=== PATIENT | female | born 2000 | race Caucasian/White ===

== ENCOUNTER → 2022-11-04 12:23 | Outpatient (CLI) | payer OTHER, SELFPAY ==
[2022-11-04 14:32] LABS: Influenza A - CEPHEID Flu A NEGATIVE (NEGATIVE); Influenza B - CEPHEID Flu B NEGATIVE (NEGATIVE)
[2022-11-04 14:33] LABS: COVID-19 CEPHEID 4-PLEX PCR Negative (Negative)
== END ==
PROVIDERS: PCP Registered Nurse Diabetes Educator; Visit Provider Registered Nurse Diabetes Educator
DX: R05.9 Cough, unspecified (principal)
CPT/HCPCS: 0240U

== ENCOUNTER 2024-02-20 12:15 | Emergency (ER) | payer OTHER, SELFPAY ==
--- NOTE | 2024-02-20 13:15 | DI.US.S_ITS ---
PROCEDURE: US PELVIC COMPLETE INDICATIONS: Vaginal bleeding TECHNIQUE: Real-time scanning was performed of the pelvic organs, with image documentation. Additional endovaginal scanning was necessary due to incomplete visualization of the adnexal and endometrial structures by transabdominal scanning. COMPARISON: None. FINDINGS: Uterus: Uterus is anteverted and normal in size at 10.5 x 6.0 x 4.8 cm. The myometrium is homogeneous. The endometrium measures 18 mm combined thickness. Heterogeneous, thickened endometrium without abnormal vascularity. No intrauterine gestation visualized. Ovaries: The right ovary measures 3.5 x 2.6 x 1.9 cm, with a calculated ovarian volume of 9.0 cc. The left ovary measures 3.1 x 3.3 x 2.2 cm, with a calculated ovarian volume of 10.7 cc. The ovaries have a normal sonographic appearance. Less than 12 follicles can be seen in each ovary. No adnexal masses are seen. Other: No pathologic free abdominal or pelvic fluid. IMPRESSION: Heterogeneous, mildly thickened endometrium without visualized intrauterine gestation or abnormal vascularity. Recommend correlation with laboratory evaluation quantitative HCG measurements. A follow-up ultrasound in 6-12 weeks can be considered document resolution. We strive to produce accurate, complete, and clear reports of imaging services. To assist us in improving patient care, this report was composed using standard report templates and voice recognition software. Therefore, it may contain abnormal punctuation, insertions and/or omissions. Occasional wrong-word or sound-alike substitutions may occur. Though we review the report and make efforts to correct it, we do recommend that the report be read carefully in proper context to recognize any text inaccuracies. Dictated by: Anthony Solis M.D. on 02/20/2024 at 14:09 Approved by: Anthony Solis M.D. on 02/20/2024 at 14:12
[2024-02-20 20:06] LABS: Add Manual Diff / Slide Review NO; Basophils Absolute Auto 0 /uL (0-100); Basophils Percent Auto 0.3 % (0-2); Eosinophils Absolute Auto 0 /uL (0-450); Eosinophils Percent Auto 0.1 % (2-4); Hematocrit 31.7 % (36-46); Hemoglobin 10.7 g/dL (12.0-16.0); Lymphocytes Absolute Auto 800 /uL (1100-4500); Mean Corpuscular HGB Conc 33.7 % (30-36); Mean Corpuscular Hemoglobin 28.8 PG (26-34); Mean Corpuscular Volume 85.5 fL (80-100); Monocytes Absolute Auto 600 /uL (0-900); Monocytes Percent Auto 5.6 % (3-14); Neutrophils Absolute Auto 9900 /uL (1500-7000); Platelet Count 243 X10^3/uL (150-400); Red Blood Cell Count 3.71 X10^6/uL (4.0-5.2); Red Cell Distribution Width 14.4 % (11.6-14.8); White Blood Cell Count 11.4 X10^3/uL (4.5-11.0)
[2024-02-20 20:08] LABS: INR 1.1 (0.9-1.3); PTT Partial Thromboplastin Tim 25 SECONDS (25.1-36.5); Prothrombin Time 12.5 SECONDS (9.4-12.5)
[2024-02-20 20:09] LABS: Alanine Aminotransferase 12 IU/L (<35); Albumin Globulin Ratio 1.3 (1.0-2.8); Alkaline Phosphatase 44 U/L (38-126); Aspartate Aminotransferase 25 IU/L (14-36); BUN Creatinine Ratio 10.5 (6-22); Bilirubin Total 0.5 mg/dL (0.2-1.3); Blood Urea Nitrogen 6 mg/dL (7-17); Carbon Dioxide 24 mmol/L (22-32); Chloride 108 mmol/L (98-107); Estimated Glomerular Filt Rate > 60 mL/min (>60); Globulin 2.3 g/dL (1.7-4.1); Glucose 81 mg/dL (70-100); HCG Quantitative /Beta subunit 49834 mIU/mL; HEMOLYSIS 74 (0-50); Potassium 4.4 mmol/L (3.4-5.1); Sodium 134 mmol/L (137-145); Total Protein 5.3 g/dL (6.3-8.2)
== END 2024-02-20 16:28 | disposition home or self-care (01) ==
LOC: ED 15:39
PROVIDERS: Emergency Provider Emergency Medicine; PCP Registered Nurse Diabetes Educator
DX: N93.9 Abnormal uterine and vaginal bleeding, unspecified (principal); R42 Dizziness and giddiness; R51.9 Headache, unspecified
CPT/HCPCS: 76830; 76856; 80053; 84702; 85025; 85610; 85730; 86850; 86900; 86901; 99281; 99283

== ENCOUNTER 2025-03-14 16:25 | Inpatient (IN) | payer OTHER, SELFPAY ==
[2025-03-14 17:04] VITALS: BP 117/63
[2025-03-14 17:53] LABS: Add Manual Diff / Slide Review NO; Hematocrit 35.0 % (36-46); Hemoglobin 11.4 g/dL (12.0-16.0); Lymphocytes Absolute Auto 1600 /uL (1100-4500); Mean Corpuscular HGB Conc 32.6 % (30-36); Mean Corpuscular Hemoglobin 26.8 PG (26-34); Mean Corpuscular Volume 82.4 fL (80-100); Platelet Count 251 X10^3/uL (150-400)
--- NOTE | 2025-03-14 18:09 | P.HPOB_ITS ---
OB HPI Date/Time Date of admission: 03/14/25 Date Patient Seen: 03/14/25 Time Patient Seen: 17:40 History of Present Condition Chief complaint: IUP, 40+0 wks, SROM 72 hrs, CNM transfer in labor Date of Last Menstrual Period: 06/07/24 Estimated Gestational Age (weeks): 40+0 : 1 Para: 0 Narrative: Jaye is a 24-year-old primigravida admitted in transfer from her [facility], [place], in labor. The patient had a high leak which started at 1810 on 03/11/2025 with subsequent gross rupture membranes the following morning on 03/12/2025. Patient did not begin actively rafael and was therefore given a dose of castor oil on 03/13/2025. The cholesterol stimulating contractions which eventually fizzled out late on the morning of 03/14/2025 and with lack of active contractions, now almost 72 hours out from spontaneous rupture of membranes, the patient is transferred to [facility] for Pitocin augmentation and delivery. Patient's course has been unremarkable with solid dating by LMP, and first-trimester ultrasound. GBS is negative. Patient has been afebrile since SROM. care: good care Dating criteria OB: LMP confirmed by 1st trimester US Ultrasounds: normal 1st trimester US and other (NL US 3rd trimester, 67th %'tile EFW) Obstetrical complications: none Medical complications OB: none Preadmission Labs Last OB Lab Results: 2 Blood Type O Positive 02/20/24, 12:56 Antibody Screen Negative 02/20/24, 12:56 Hct, (36-46) 35.0 % L Today, 17:45 Hgb, (12.0-16.0) 11.4 g/dL L Today, 17:45 -: Chlamydia screen: negative, Gonorrhea screen: negative and Urine: negative -: PAP smear: Normal External Labs -: Urine: negative Prior (ies) Hx # Term Pregnancies: 0 Evaluation Evaluation Baseline heart rate: 130 Variability: Moderate (6-25) monitor accelerations: Present Monitor Decelerations: Absent Contraction Frequency (minutes): 6 Uterine Contraction Intensity: Mild Category of Tracing: Reactive Status: Category l Dilation (cm): 5 (According to CNM) Effacement (%): 100 (According to CNM) Dilation: >/=5 cm Effacement: >/=80% station: -2 Position of cervix: anterior Consistency: soft Lynch score: 11 [facility] Surgical History Anesthesia History of appendectomy (~2015) History of elbow surgery (~2004) History of knee surgery Meds Home Medications and Allergies Home Medications ?Medication ?Instructions ?Recorded ?Confirmed ?Type No Known Home Medications 11/04/22 07/10/08 History Allergies Allergy/AdvReac Type Severity Reaction Status Date / Time mold Allergy Mild Rash Verified 03/14/25 17:07 pollen extracts Allergy Mild Rash Verified 03/14/25 17:07 ciprofloxacin AdvReac Intermediate Kidney Verified 03/14/25 17:07 damage Review of Systems Review of Systems Narrative: Problem-specific ROS positives included in HPI OB Exam Vital signs Blood Pressure: 117/63 Pulse Rate: 77 Respiratory Rate: 15 Temperature: 97.0 F HENMT Head: normal to inspection, normocephalic and atraumatic Eyes General: appearance normal, both eyes and all related structures Resp Effort & Inspection: normal respiratory effort and able to speak in complete sentences Auscultation: clear to auscultation bilaterally Cardio Rate: regular rate Rhythm: regular rhythm Heart Sounds: S1 normal, S2 normal and no murmurs Extremities Lower extremity: Yes normal to inspection GI Inspection: normal to inspection Palpation: Yes soft and Yes no hepatosplenomegaly Uterus Location (Fundal Height): 37 Estimated Weight (lbs): 8 Amniotic Fluid: clear Objective Labs 03/14/25 17:45 Labs: Laboratory Results - last 24 hr 03/14/25 17:45 WBC 12.5 H RBC 4.24 Hgb 11.4 L Hct 35.0 L MCV 82.4 MCH 26.8 MCHC 32.6 RDW 14.1 Plt Count 251 Neut % (Auto) 78.2 H Lymph % (Auto) 13.[address] [place] % (Auto) 8.1 Eos % (Auto) 0.2 L Baso % (Auto) 0.4 Neut # (Auto) 9800 H Lymph # (Auto) 1600 [place] # (Auto) 1000 H Eos # (Auto) 0 Baso # (Auto) 0 Assessment and Plan Assessment and Plan Assessment and Plan narrative: ASSESSMENT 1. Intrauterine , 40+ 0 weeks gestational age 2. Prolonged rupture membranes 3. GBS negative status PLAN 1. Admit for Pitocin augmentation and delivery as indicated 2. See admission orders Time-Based Coding :: [TOTAL MINUTES] spent with patient and on the chart (including review of chart, obtaining history, exam, reviewing outside data, placing orders, documenting exam and treatment plan, and counseling patient) on [DATE].
[2025-03-14 20:05] VITALS: BP 117/63; PULSE 77; RESP 15; TEMP 36.1
[2025-03-14] MEDS: OXYTOCIN PREMIX 30 UNIT/500 ML PLAST..BAG IV (20:50)
--- NOTE | 2025-03-15 03:20 | PM.OBPNLAB ---
Date/Time Date Patient Seen: 03/15/25 Time Patient Seen: 03:20 Pain Control Pain control: tolerating well Pelvic Exam Dilation (cm): 10 Effacement (%): 100 (According to CNM) station: +1 Amniotic membrane status: Ruptured (Forebag AROM 0305) Contractions Contractions on admission: irregular Monitor mode: External Pitocin rate (mU/min): 1 Contraction duration (min): 1 Contraction pattern: Regular Contraction phase: Resting Contraction intensity: Strong/Firm Status status: Category l Heart Rate Baseline: 140 Monitor Accelerations: Present Monitor Decelerations: Early Monitor Variability: Moderate Assessment and Plan Assessment: active labor Plan: continuous present management Comments: Patient will rest for a bit and start pushing or permit laboring down as desired. Mother understandably nearing exhaustion but strong and committed to the active birthing process..
[2025-03-15] MEDS: OXYTOCIN PREMIX 30 UNIT/500 ML PLAST..BAG 999 UNIT IV (03:55)
[2025-03-15] MEDS: LIDOCAINE 1% 20 ML INJ (04:00)
--- NOTE | 2025-03-15 04:36 | PM.OBPRVD ---
Events: Prolonged Rupture Membrane Labor & Delivery Delivery date: 03/15/25 Delivery Time: 03:44 Intrapartal Events: None and Hypotonic Dysfunction Cervical ripening method: none Induction method: none Delivery augmentation: pitocin Delivery monitor: external FHT and external uterine Route of delivery: Episiotomy description: None L&D Laceration Description: Perineal - 2nd Degree Delivery repair: chromic Estimated blood loss (mL): 500 Quantitative Blood Loss: 849 Anesthesia Type: Local Complications: None Narrative: Following an 8 minute 2nd stage, the patient delivered spontaneously over an intact perineum a vigorous female infant with Apgars 9/9, and a weight 4001g (8lbs. 13.1oz.). No cord entanglement or shoulder dystocia was encountered. Skin to skin contact immediately initiated following delivery and delayed cord clamping performed. Once pulsations of the cord had ceased, the cord itself was doubly clamped and cut with a sample of cord blood obtained for routine studies. The placenta was delivered easily with gentle cord traction and suprapubic countertraction inspection of the placenta revealed an intact placenta with a centrally inserting three-vessel cord. Intravenous Pitocin initiated immediately following delivery of the placenta with a large amount of clot delivering with the placenta itself. bleeding was brought quickly under control with the IV Pitocin. Inspection of the perineum showed a somewhat irregular second-degree perineal laceration which was repaired with 2-0 chromic in the usual manner. Sponge, instrument, and needle counts were correct at the end of the delivery process which was well tolerated by both mother and baby. [place] Baby 1: gender: Female Presentation: vertex Position: Left Occiput Anterior Placenta delivery description: Spontaneous Cord Vessel Description: 3 Vessels score (1 min): 9 score (5 min): 9 weight: 8 lb 13.131 oz Plan for aftercare: Routine care
[2025-03-15 06:36] LABS: Add Manual Diff / Slide Review NO; Hematocrit 32.7 % (36-46); Hemoglobin 10.6 g/dL (12.0-16.0); Lymphocytes Absolute Auto 1300 /uL (1100-4500); Mean Corpuscular HGB Conc 32.4 % (30-36); Mean Corpuscular Hemoglobin 26.7 PG (26-34); Mean Corpuscular Volume 82.5 fL (80-100); Platelet Count 336 X10^3/uL (150-400)
[2025-03-15] MEDS: IBUPROFEN 600 MG TABLET PO (06:43)
[2025-03-15] MEDS: DERMOPLAST SPRAY 20% 60 ML 1 SPRAY TOP (06:43)
--- NOTE | 2025-03-15 13:08 | P.DS_ITS ---
Discharge Providers Provider Date of admission: 03/14/25 16:25 Discharge Date: 03/15/25 Primary care physician: TOMASZ Bo Consults: 03/14/25 16:55 Consult to Anesthesiology Urgent Comment: Consulting Provider: Yuli Porter Reason for consultation: Epidural Has provider been notified: Yes 03/15/25 05:17 Consult to Qualitative Field Coordinator Routine Comment: Discharge provider: Rudy Castillo MD Summary Hospital Course Date Patient Seen: 03/15/25 Time Patient Seen: 13:09 Diagnoses: Intrauterine gestation, 40+ 1 weeks, delivered by spontaneous vaginal Prolonged rupture of membranes Hospital Course: Jaye is a 24-year-old primigravida admitted in transfer on the evening of 03/14/2025 from her program management professional, Courtney Jones, due to prolonged rupture of membranes and secondary arrest of labor. Patient experienced spontaneous rupture membranes late on the evening of 03/11/2025 and after failing to spontaneously labor after SROM, nipple stimulation was employed followed by use of castor oil to facilitate labor. Unfortunately her labor stalled on the afternoon of 03/14/2025 and the decision was made to transfer the [facility] for augmentation and delivery. Following her arrival on the evening of 03/14/2025, gentle Pitocin augmentation was initiated with pain relief provided by natural methods and as needed use of nitrous oxide. She progressed spontaneously with augmentation of 1 milliunit Pitocin/min and at 3:45 a.m. on the morning of 03/15/2025 delivered spontaneously a viable female infant with Apgars of 9/9, and a weight of 4001 g (8 lb 13.1 oz). She sustained a second-degree perineal laceration which was easily repaired with chromic catgut suture. Following delivery both mother and baby have done exceptionally well with the mother experiencing prompt return of bowel and bladder function, she is ambulating independently, tolerating a regular diet, and her pain is well relieved with oral pain medications. She will be discharged at this time to home after counseling regarding precautionary symptoms, limitations activity, medications, and plans for follow-up with her program management professional. The infant will undergo CCHD, PKU, and bilirubin testing on the 2nd day of life. Medications at discharge will include resumption of vitamins and she will use [id number] Tylenol/ibuprofen as needed for her pain relief. Follow-up will be via her program management professional who has provided excellent care of during her and planned home labor. Peripartum Data Infant Delivery Method: Natural Vaginal Laceration Description: Perineal - 2nd Degree Episiotomy description: None Procedures: Spontaneous vaginal delivery with repair of second-degree perineal laceration complications: none 1: Gender: Female Disposition of : home Status at Discharge Cognitive/behavioral status at discharge: oriented Functional status at discharge: independent ambulation Overall status at discharge: patient is progressing back to baseline Time Spent with Patient Time attestation: Total time spent providing and/or coordinating discharge services: 20 minutes Time spent: Less than 30 minutes Objective Labs 03/15/25 06:28 Labs: Laboratory Results - last 24 hr 03/14/25 03/15/25 17:45 06:28 WBC 12.5 H 20.5 H D RBC 4.24 3.97 L Hgb 11.4 L 10.6 L Hct 35.0 L 32.7 L MCV 82.4 82.5 MCH 26.8 26.7 MCHC 32.6 32.4 RDW 14.1 13.8 Plt Count 251 336 Neut % (Auto) 78.2 H 87.4 H Lymph % (Auto) 13.1 L 6.4 L [place] % (Auto) 8.1 5.9 Eos % (Auto) 0.2 L 0.0 L Baso % (Auto) 0.4 0.3 Neut # (Auto) 9800 H 83222 H Lymph # (Auto) 1600 1300 [place] # (Auto) 1000 H 1200 H Eos # (Auto) 0 0 Baso # (Auto) 0 100 Blood Type O Positive Antibody Screen Negative Exam Const General: cooperative and comfortable Nutritional Appearance: average body habitus Orientation: alert and oriented x3 HENMT Head: normal to inspection, atraumatic and abrasion Ears: hearing grossly normal bilaterally Face and sinus: face symmetric Eyes General: appearance normal, both eyes and all related structures Conjunctivae: conjunctivae normal Sclera: sclerae normal EOM: EOM intact bilaterally Neck Neck: normal visual inspection Resp Effort & Inspection: normal respiratory effort and able to speak in complete sentences GI Inspection: normal to inspection Palpation: soft and no hepatosplenomegaly External Female Exam: other (No significant bleeding noted) Extrem General: no calf tenderness Psych Appearance: grossly normal Mental Status: mental status grossly normal Speech and Movement: speech and movement normal Mood: congruent mood Affect: normal affect Attitude: cooperative Thought Process: normal Thought Content: normal Judgment: judgment good Discharge Plan Discharge Plan Patient Disposition: Home Provider Discharge Comment: Please review the written instructions you received when you were discharged from hospital. Records from your hospitalization and delivery have been faxed to your program management professional. Your follow-up will be arranged with your nurse program management professional but we are always available for any questions or concerns either by phone at [phone] or by the [facility] patient portal. Discharge orders & Medications Prescriptions: No Action No Known Home Medications Follow up/Referrals: Bean Butts ARNP [Primary Care Provider, Medical] Rudy Castillo MD [Physician, WAITER] Discharge Health Status Multidrug resistant organism: No MDRO Diet/Activity/Treatments Diet: Diet as Tolerated Activity: As tolerated Other treatments: [id number] Tylenol and/or ibuprofen may be used for pain relief. Gnij-lgi-bmwxrrr stool softeners and/or MiraLax may be used as needed for constipation. Skin/Wound/Dressing Care Report to your healthcare provider any signs of infection, such as:: chills, fever, increased pain, unusual drainage and unusual redness Dressing: N/A Visit Report/Discharge Packet Instructions: DI for Labor and Delivery, Vaginal , DI for and Nipple Soreness Stand Alone Forms: Patient Portal/API, Stroke Signs & Symptoms Discharge Data Primary Care Provider: Bean Butts
[2025-03-15 13:32] VITALS: BP 112/56; PULSE 70; RESP 15; TEMP 36.5
== END 2025-03-15 16:45 | disposition home or self-care (01) | DRG 560 ==
PROVIDERS: Admitting Provider Obstetrics & Gynecology; PCP Registered Nurse Diabetes Educator; Referring Provider Obstetrics & Gynecology; Visit Provider Obstetrics & Gynecology
DX: O42.12 Full-term premature rupture of membranes, onset of labor more than 24 hours following rupture (principal); Z3A.40 40 weeks gestation of pregnancy; Z37.0 Single live birth; Z67.40 Type O blood, Rh positive; O70.1 Second degree perineal laceration during delivery; O63.0 Prolonged first stage (of labor)
CPT/HCPCS: 36415; 59050; 85025; 86850; 86900; 86901; G0379; J2590